=== PATIENT | male | born 1940 ===

== ENCOUNTER → 2021-07-02 13:38 | Outpatient (CLI) | payer MEDICARE, BC, SELFPAY ==
--- NOTE | 2021-07-02 | DI.RAD.S_ITS ---
PROCEDURE: XR CHEST 2V INDICATIONS: COUGH TECHNIQUE: 2 views of the chest were acquired. COMPARISON: None. FINDINGS: Surgical changes and devices: None. Lungs and pleura: Lungs are mildly edematous. Small bilateral pleural effusions but no pneumothorax. Mediastinum: Mediastinal contours are normal. Heart size is at the upper limits of normal. Bones and chest wall: No suspicious bony abnormalities. Soft tissues appear unremarkable. IMPRESSION: Small bilateral pleural effusions, heart size at the upper limits of normal, mild pulmonary edema pattern suspect mild acute CHF. Dictated by: Bladimir Hutchins M.D. on 07/02/2021 at 14:09 Approved by: Bladimir Hutchins M.D. on 07/02/2021 at 14:09
== END ==
DX: R05 Cough (principal); J90 Pleural effusion, not elsewhere classified; J81.1 Chronic pulmonary edema
CPT/HCPCS: 71046